=== PATIENT | female | born 1955 | race Two or more races ===

== ENCOUNTER 2021-10-02 04:54 | Emergency (ER) | payer OTHER ==
[~2021-10-02] VITALS: Ht 157.5 cm; Wt 71.2 kg
[2021-10-02 07:00] LABS: Basophils # (auto) 0 10 ^3/uL (0-0.2); Basophils % (auto) 1.2 % (0.0-2.0); Eosinophils # (auto) 0.1 10 ^3/uL (0-0.8); Eosinophils % (auto) 2.4 % (0.0-7.0); Hematocrit 42.5 % (36.0-46.0); Hemoglobin 14.2 g/dL (12.2-16.2); Lymphocytes # (auto) 1.5 10 ^3/uL (0.4-5.4); Lymphocytes % (auto) 38.4 % (10.0-50.0); Mean Corpuscular Hemoglobin 28.9 pg (28.0-32.0); Mean Corpuscular Hgb Conc. 33.5 g/dL (32.0-36.0); Mean Corpuscular Volume 86.3 fL (80.0-100.0); Monocytes # (auto) 0.3 10 ^3/uL (0-1.3); Monocytes % (auto) 6.9 % (0.0-12.0); Neutrophils % (auto) 51.1 % (37.0-80.0); Nucleated Red Blood Cells % 0.1 %; Red Blood Cells 4.92 10^6/uL (4.0-5.20); Red Cell Distribution Width 13.5 % (11.8-14.3); White Blood Cell 3.8 10^3/uL (4.4-10.8)
[2021-10-02 07:30] LABS: Albumin 3.8 g/dL (3.4-5.0); Calcium 8.5 mg/dL (8.5-10.1); Potassium 3.2 mmol/L (3.5-5.1)
[2021-10-02 07:35] LABS: Bilirubin, Total 0.3 mg/dL (0.2-1.0); Total Protein 7.5 g/dL (6.4-8.2)
[2021-10-02 09:00] VITALS: BP 113/65
[2021-10-02] MEDS ORDERED: POTASSIUM EFFERVESENT TAB 25 MEQ PO ONE (09:30)
[2021-10-02] MEDS ORDERED: METO-281 PO (09:31)
[2021-10-02] MEDS ORDERED: FAMO20TA10 GT (09:31)
== END 2021-10-02 10:06 | disposition home or self-care (01) ==
LOC: EDBD 04:54 → ER 04:54 → EDSEX 04:54 → ER 10:06
DX: K21.00 Gastro-esophageal reflux disease with esophagitis, without bleeding (principal); J38.5 Laryngeal spasm
CPT/HCPCS: 36415; 80053; 83880; 84484; 85025; 93005